=== PATIENT | male | born 1970 | race Caucasian/White ===

== ENCOUNTER → 2017-08-27 | Outpatient (CLI) | payer BC ==
--- NOTE | 2017-08-27 20:54 | CONS ---
CONSULTATION DATE OF SERVICE: 08/27/2017 This patient is a 47-year-old gentleman who has been evaluated in the sleep center for possible obstructive sleep apnea-hypopnea syndrome. HISTORY OF PRESENT ILLNESS/SLEEP-WAKE EVALUATION: Patient's usual sleep schedule on working days is from 9 p.m. to 5 a.m. and on weekends from around 9 p.m. until 8 a.m. No problem with falling asleep. He has a TV set in the bedroom. He sleeps with his and has loud snoring. The patient wakes up from sleep once with nocturia, has positive history of kicking at night and possible out-of- dream movements. The patient wakes up tired, falling asleep during the day. [place] Sleepiness Scale is significantly increased to 15. MEDICATIONS: 1. Testosterone. 2. Vitamin D. 3. Mobic. 4. Lexapro. 5. Lisinopril. 6. Prilosec. 7. . 8. Simvastatin. 9. Flonase. PAST MEDICAL HISTORY: 1. Hypertension. 2. Acid reflux. 3. Hyperlipidemia. 4. Allergies. 5. Hay fever. 6. Depression. 7. Low level of testosterone. PAST SURGICAL HISTORY: 1. Hernia repair. 2. Hand surgery. SOCIAL HISTORY: Negative for smoking. Alcohol consumption occasional. FAMILY HISTORY: Hypertension, heart problems, hyperlipidemia, epilepsy, cancer. REVIEW OF SYSTEMS: Significant excessive daytime sleepiness. Awakenings from sleep. PHYSICAL EXAMINATION: GENERAL A pleasant gentleman without distress. VITAL SIGNS: BP 126/80, HR 98, RR 16, height 5 feet 8 inches, weight 254, BMI 38.4, temperature 98.1, oxygen saturation at room air 96%. HEENT: PERRLA, EOMI. Evaluation of oropharynx showed tongue protrudes midline; moderately low position of soft palate. Small oropharyngeal airspace. Significant restriction of nasal breathing bilaterally. NECK: Wide neck; 18 inches in circumference. LUNGS: Clear to percussion and to auscultation. Good air exchange. No wheezing or rhonchi. HEART: S1, S2 regular. No murmurs, gallops or rubs. ABDOMEN: Obese. EXTREMITIES : No clubbing or cyanosis. SPECIAL FORCES SENIOR SERGEANT: Awake, alert, and oriented X3. Cranial nerves 2 to 7 intact. There is no fasciculation or atrophy. noted. No focal deficits observed. IMPRESSION: 1. Snoring, awakenings from sleep with nocturia, significant restriction of nasal breathing, small oropharyngeal airspace, significant sleepiness, [place] Sleepiness Scale 15, wide neck; obstructive sleep apnea-hypopnea syndrome. 2. Obesity. BMI 38.4. 3. Hypertension. 4. Acid reflux. 5. Hyperlipidemia. 6. Allergies. 7. History of hay fever. 8. Nasal breathing restriction. 9. Depression. 10.Low level of testosterone. 11.Low level of vitamin D. 12.Status post hernia repair. 13.Status post hand surgery. 14.History of kicking at night, periodic limb movements. 15.Some episodes of [id number]-pw-[id number] movements, possible REM sleep behavioral disorder. PLAN: 1. Polysomnography for evaluation of patient's breathing during sleep. 2. CPAP/BiPAP titration if sleep study confirms obstructive sleep apnea-hypopnea syndrome. 3. Preferable position during sleep on the side. 4. No driving if patient feels any sleepiness. Patient is aware of civil and criminal liability for unsafe driving. 5. I will see patient for follow up visit to explain results of testing and following plan. Thank you very much for referring this patient for consultation. Sincerely, Wesley Bryant MD, PhD, FAASM Diplomat of [place] [employer] [place] [employer] Operator of [facility] [place] MATTHIAS / NEIL: [id number] /
== END | disposition home or self-care (01) ==
LOC: SLEEP 16:11
PROVIDERS: ATTEND Internal Medicine
DX: G47.33 Obstructive sleep apnea (adult) (pediatric) (principal); E66.9 Obesity, unspecified; I10 Essential (primary) hypertension; K21.9 Gastro-esophageal reflux disease without esophagitis; E78.2 Mixed hyperlipidemia; T78.40XA Allergy, unspecified, initial encounter; R09.81 Nasal congestion; F32.9 Major depressive disorder, single episode, unspecified; E34.9 Endocrine disorder, unspecified; E55.9 Vitamin D deficiency, unspecified; Z98.890 Other specified postprocedural states; Z87.09 Personal history of other diseases of the respiratory system; Z68.38 Body mass index [BMI] 38.0-38.9, adult; Z79.1 Long term (current) use of non-steroidal anti-inflammatories (NSAID); Z79.891 Long term (current) use of opiate analgesic
CPT/HCPCS: 99211

== ENCOUNTER → 2018-01-14 | Outpatient (CLI) | payer BC ==
--- NOTE | 2018-01-14 16:54 | PN ---
PROGRESS NOTE DATE OF SERVICE: 01/14/2018 This patient is a 47-year-old gentleman who has been followed in the sleep center for treatment of obstructive sleep apnea-hypopnea syndrome. Recently the patient had a polysomnogram and CPAP titration and I discussed results of the sleep studies with the patient in detail. Polysomnogram showed severe sleep apnea with extremely severe oxygen desaturation to 38%. The patient was started on treatment with CPAP. He is able to use equipment every night without significant problems, except his nasal mask was changed from a narrow size to the wide-sized mask, and he does experience discomfort with this mask with pressure on the face. Otherwise he sleeps better. He feels better during the day. He has more energy. He does not snore. I checked his CPAP unit. Pressure is in the range of 5 to 18 automatic regimen. Most of the time pressure is 11.4 cm of water. Usage is 28/30 nights for more than 4 hours. Average usage 7.1 hours. Apnea-hypopnea index is only 2.6, which is totally perfect. Leak is borderline 31 L/minute, and sometimes patient experiences some leak from the nasal mask on his face. MEDICATIONS: 1. Testosterone. 2. Vitamin D. 3. Mobic. 4. Lexapro. 5. Lisinopril. 6. Prilosec. 7. Simvastatin. 8. Flonase. PHYSICAL EXAMINATION: GENERAL A pleasant gentleman without distress. VITAL SIGNS: BP 117/78, HR 70, RR 16, weight 261, temperature 99.1, oxygen saturation at room air 97%. HEENT: PERRLA, EOMI. Evaluation of oropharynx showed tongue protrudes midline; moderately low position of soft palate. Wide pillars. NECK: Supple. No JVD. Thyroid is not palpable. LUNGS: Clear to percussion and to auscultation. Good air exchange. No wheezing or rhonchi. HEART: S1, S2 regular. No murmurs, gallops or rubs. ABDOMEN: Obese. EXTREMITIES : No clubbing or cyanosis. PST SPECIALIST: Awake, alert, and oriented X3. Cranial nerves 2 to 7 intact. There is no fasciculation or atrophy. noted. No focal deficits observed. IMPRESSION: 1. Severe obstructive sleep apnea-hypopnea syndrome. Apnea-hypopnea index 7.5 with extremely severe oxygen desaturation to 38% in REM sleep. The has patient demonstrated great compliance with treatment. Benefitting from treatment. 2. Obesity. 3. Hypertension. 4. Acid reflux. 5. Allergy. 6. History of depression. 7. History of low testosterone. 8. History of low vitamin D. PLAN: 1. Continue treatment with CPAP every night for the whole night. 2. Losing weight. 3. I believe patient will benefit from a trial with usage of nasal pillow mask. 4. No driving if feeling any sleepiness. 5. Sleep hygiene with regular time in bed for at least 7-1/2 to 8 hours. 6. We will continue his prescription for all necessary CPAP supplies. 7. Follow-up visit in about 10 months, which will be one year since sleep study, or earlier if patient has any problems. Thank you very much for allowing me to participate in the management of your patient. Sincerely, Wesley Bryant MD, PhD, FAASM Diplomat of [place] [employer] [employer] In Service Education Teacher of [facility] [place] MMETHELL / CITLALIN: [id number] /
== END | disposition home or self-care (01) ==
LOC: SLEEP 15:05
PROVIDERS: ATTEND Internal Medicine
DX: G47.33 Obstructive sleep apnea (adult) (pediatric) (principal); E66.9 Obesity, unspecified; I10 Essential (primary) hypertension; K21.9 Gastro-esophageal reflux disease without esophagitis; F32.9 Major depressive disorder, single episode, unspecified; T78.40XA Allergy, unspecified, initial encounter; Z79.1 Long term (current) use of non-steroidal anti-inflammatories (NSAID); Z79.899 Other long term (current) drug therapy; Z99.89 Dependence on other enabling machines and devices; Z86.39 Personal history of other endocrine, nutritional and metabolic disease

== ENCOUNTER → 2019-09-01 | Outpatient (CLI) | payer BC, OTHER ==
--- NOTE | 2019-09-01 14:57 | PN ---
PROGRESS NOTE DATE OF SERVICE: 09/01/2019. A 49-year-old gentleman who has been followed in the Sleep Center for treatment of obstructive sleep apnea-hypopnea syndrome. The patient continued to use his CPAP equipment every night for the whole night without significant problems. No snoring with the machine. [place] Sleepiness Scale today is 10. I checked CPAP unit, range of the pressure is 6-18 with average pressure 9.8 cm of water. Usage is 29/30 nights for more than 4 hours with average usage 9 hours per night. Leak is 17 L/minute which is borderline. Apnea-hypopnea index absolutely normal 2.1. Sometimes patient has problems with the condensation of water inside of the tube, if he increases level of humidity higher. MEDICATIONS: Simvastatin, omeprazole, , vitamin D 2, meloxicam, lisinopril, and also testosterone. PHYSICAL EXAM: Patient in no distress, BP 114/75, HR 91, RR 16, height 5 foot 8-3/4 inches, weight 233 pounds which is around 30 pounds less than during previous visit. Temperature 98.6, oxygen saturation on room air 98%. OROPHARYNX: Low position of soft palate, Mallampati 3: ABDOMEN: Scar in the middle of the belly after recent resection of the colon. IMPRESSION: 1. Obstructive sleep apnea-hypopnea syndrome. Patient demonstrated great compliance with treatment benefitting from treatment. 2. Obesity, patient lost around 30 pounds since previous visit. 3. Status post recent colon resection for perforated colon secondary to diverticulitis. 4. Hyperlipidemia. 5. Acid reflux. 6. Hypertension. 7. History of allergy. 8. History of depression. 9. History of low testosterone. 10.History of low vitamin D. PLAN: 1. Patient will continue to use CPAP equipment every night for the whole night. 2. We will adjust temperature in the heated tube and humidity. 3. I will maintain all necessary prescriptions for CPAP supplies including mask, heated tube, filters. 4. Continue losing weight. 5. No driving if feeling sleepiness. Thank you very much for allowing me to participate in the management of your patient. Sincerely, Wesley Bryant MD, PhD, FAASM Diplomat of [place] [employer] [employer] Box Annealer of [facility] [place] MMODL / IJN: [id number] /
== END | disposition home or self-care (01) ==
LOC: SLEEP 13:18
PROVIDERS: ATTEND Internal Medicine
DX: G47.33 Obstructive sleep apnea (adult) (pediatric) (principal); E66.9 Obesity, unspecified; E78.5 Hyperlipidemia, unspecified; K21.9 Gastro-esophageal reflux disease without esophagitis; I10 Essential (primary) hypertension; Z86.59 Personal history of other mental and behavioral disorders; Z87.892 Personal history of anaphylaxis; Z86.39 Personal history of other endocrine, nutritional and metabolic disease; Z98.890 Other specified postprocedural states; Z79.899 Other long term (current) drug therapy

== ENCOUNTER → 2019-12-23 | Outpatient (CLI) | payer OTHER | END | disposition home or self-care (01) | LOC: LABWHC1 08:19 | PROVIDERS: ATTEND Surgery | DX: Z11.59 Encounter for screening for other viral diseases (principal) ==

== ENCOUNTER 2019-12-27 11:15 | Day surgery (SDC) | payer OTHER ==
[2019-12-23 13:02] VITALS: BMI 35.9
[~2019-12-27 11:15] MED LIST: LACTATED RINGERS 1,000 ML IV SCH; LIDOCAINE 1% (10MG/ML) FOR IV START INTRADERMA PRN
[2019-12-27 11:18] VITALS: TEMP 97.6
[2019-12-27] MEDS ORDERED: PROPOFOL 10 MG/ML 20 ML VIAL IV ONE (11:58)
--- NOTE | 2019-12-27 12:21 | P.PCN ---
Date of Procedure: 12/27/19 Preoperative Diagnosis: Colon cancer screening, Diverticulosis, colostomy in situ Postoperative Diagnosis: Colon cancer screening, Diverticulosis, colostomy in place Procedure(s) Performed: Colonoscopy through rectum and colostomy Anesthesia: MAC Surgeon: Annia Vail Pathology: none sent Condition: stable Disposition: PACU Indications for Procedure: The patient has a colostomy in place for diverticulitis with perforation. He's presenting for colon cancer screening prior to reversal of his colostomy Description of Procedure: The patient's taken to the endoscopy suite where colonoscope is passed per rectum to about 30 cm. There are a few diverticuli noted. No evidence of polyp, mass lesion, other mucosal abnormality. A colonoscope is then passed through his colostomy to the cecum. He had a good prep. There is a small amount of liquid material which is irrigated and aspirated. There is no evidence of polyp, mass lesion, ulcer, stricture, other mucosal abnormality. He tolerated the procedure without difficulty and is taken to recovery room in satisfactory condition. We'll proceed with reversal of colostomy tomorrow. Repeat colonoscopy 10 years Plan - Discharge Summary Discharge Rx Participant: No New Discharge Prescriptions: No Action Testosterone Cypionate [Depo-Testosterone] 100 mg IM Q14D Omeprazole 40 mg PO DAILY Loratadine [Claritin] 10 mg PO DAILY PRN PRN Reason: ALLERGY/SINUS SX Ergocalciferol [Vitamin D2] 50,000 unit PO GILES Simvastatin [Zocor] 40 mg PO HS Meloxicam [Mobic] 15 mg PO DAILY Lisinopril [Zestril] 20 mg PO DAILY Ezetimibe [Zetia] 10 mg PO DAILY Ibuprofen [Motrin Ib] 600 mg PO Q6H PRN PRN Reason: Pain Multivitamin [Multivitamins Adult Gummies] 2 each PO DAILY Discharge Medication List Ergocalciferol [Vitamin D2] 50,000 unit PO GILES 08/06/19 [History] Ezetimibe [Zetia] 10 mg PO DAILY 08/06/19 [History] Ibuprofen [Motrin Ib] 600 mg PO Q6H PRN 08/06/19 [History] Lisinopril [Zestril] 20 mg PO DAILY 08/06/19 [History] Loratadine [Claritin] 10 mg PO DAILY PRN 08/06/19 [History] Meloxicam [Mobic] 15 mg PO DAILY 08/06/19 [History] Omeprazole 40 mg PO DAILY 08/06/19 [History] Simvastatin [Zocor] 40 mg PO HS 08/06/19 [History] Testosterone Cypionate [Depo-Testosterone] 100 mg IM Q14D 08/06/19 [History] Multivitamin [Multivitamins Adult Gummies] 2 each PO DAILY 12/23/19 [History] Activity/Diet/Wound Care/Special Instructions: Continue clear liquid diet today Discharge Disposition: HOME SELF-CARE
[2019-12-27 13:10] VITALS: BP 138/68; PULSE 68; RESP 16
== END 2019-12-27 13:20 | disposition home or self-care (01) ==
LOC: ORWHC2ENDO 11:15
PROVIDERS: ATTEND Surgery
DX: Z12.11 Encounter for screening for malignant neoplasm of colon (principal); K57.30 Diverticulosis of large intestine without perforation or abscess without bleeding; K43.5 Parastomal hernia without obstruction or gangrene; I10 Essential (primary) hypertension; E78.00 Pure hypercholesterolemia, unspecified; Z93.3 Colostomy status; Z79.890 Hormone replacement therapy; Z79.1 Long term (current) use of non-steroidal anti-inflammatories (NSAID); Z79.899 Other long term (current) drug therapy; Z90.49 Acquired absence of other specified parts of digestive tract; Z80.8 Family history of malignant neoplasm of other organs or systems
CPT/HCPCS: 44388; J2704

== ENCOUNTER 2019-12-28 08:34 | Inpatient (IN) | payer OTHER ==
[2019-12-23 12:36] VITALS: BMI 35.9
[2019-12-27 13:49] LABS: HCT 42.8 % (39.0-53.0); HGB 14.4 gm/dL (13.0-17.5); MCH 28.3 pg (25.0-35.0); MCHC 33.7 g/dL (31.0-37.0); MCV 84.2 fL (80.0-100.0); Platelet Count 185 k/uL (150-450); RBC 5.08 m/uL (4.30-5.90); RDW 13.5 % (11.5-15.5); WBC 6.4 k/uL (3.8-10.6)
[~2019-12-28 08:34] MED LIST changes: +DEXAMETHASONE SOD PHOSPHATE 10 MG/ML 1 ML VIAL IV ONE; -LACTATED RINGERS 1,000 ML IV SCH; -LIDOCAINE 1% (10MG/ML) FOR IV START INTRADERMA PRN; +ONDANSETRON 4 MG/2 ML VIAL IVP ONE; +metroNIDAZOLE-NS PMX 500 MG in SALINE 1 100ML.BAG IVPB ONE
[2019-12-28] MEDS: LACTATED RINGERS 1,000 ML IV SCH ×2 (09:18→19:30)
[2019-12-28] MEDS ORDERED: HEPARIN SODIUM,PORCINE 5,000 UNIT/ML 1 ML VIAL SQ ONE (09:31)
[2019-12-28] MEDS ORDERED: LABETALOL 5 MG/ML VIAL MDV ONE (10:06)
[2019-12-28] MEDS ORDERED: fentaNYL (PF) 50 MCG/ML 2 ML AMP ONE (10:06)
[2019-12-28] MEDS ORDERED: METOPROLOL TARTRATE 5 MG/5 ML VIAL IVP ONE (10:06)
[2019-12-28] MEDS ORDERED: HYDROmorphone (PF) 1 MG/ML ONE (10:06)
[2019-12-28] MEDS ORDERED: NEOSTIGMINE 1 MG/ML 10 ML VIAL ONE (10:06)
[2019-12-28] MEDS ORDERED: LIDOCAINE 1% INJ 10MG/ML (20 ML MDV) ONE (10:06)
[2019-12-28] MEDS ORDERED: MIDAZOLAM 2 MG/2 ML VIAL ONE (10:06)
[2019-12-28] MEDS ORDERED: ROCURONIUM BROMIDE 10 MG/ML 5 ML VIAL IV ONE (10:06)
[2019-12-28] MEDS ORDERED: PROPOFOL 10 MG/ML 20 ML VIAL IV ONE (10:06)
[2019-12-28] MEDS ORDERED: KETOROLAC 30 MG/ML 1 ML VIAL ONE (10:06)
[2019-12-28] MEDS ORDERED: GLYCOPYRROLATE 0.2 MG/ML 2 ML VIAL ONE (10:06)
[2019-12-28] MEDS ORDERED: hydrALAZINE HCL 20 MG/ML 1 ML VIAL ONE (10:06)
[2019-12-28] MEDS ORDERED: SUCCINYLCHOLINE CHLORIDE VIAL 200 MG/10 ML VIAL IV ONE (10:06)
[2019-12-28] MEDS ORDERED: BUPIVACAIN-EPI 0.25%-1:200,000 30 ML VIAL SQ ONE ×2 (10:56)
[2019-12-28] MEDS ORDERED: LACTATED RINGERS 1,000 ML IV ONE (11:37)
[2019-12-28] MEDS ORDERED: HYDROcodone/APAP 5-325MG 1 EACH TAB PO PRN (13:55)
[2019-12-28] MEDS ORDERED: NALOXONE 0.4 MG/ML 1 ML VIAL IV PRN (13:55)
--- NOTE | 2019-12-28 14:04 | P.OP ---
Date of Procedure: 12/28/19 Preoperative Diagnosis: Parastomal hernia, colostomy in place, diverticulosis Postoperative Diagnosis: Same Procedure(s) Performed: Robotic reversal of colostomy with peristomal herniorrhaphy Anesthesia: DAWOOD Surgeon: Annia Vail IV fluids (ml): 150 Condition: stable Disposition: PACU Indications for Procedure: The patient had had a Lyons's procedure due to perforated diverticulitis. He's presenting for reversal. He also was noted to have a parastomal hernia. Description of Procedure: The patient's taken the operative suite where he is prepped and draped in the usual sterile manner under general endotracheal anesthetic. An incision is made around the skin of the ostomy. The bowel was then dissected free from the subcutaneous tissues. Small bleeding points were controlled with electrocautery. The bowels freed up from the fascial edges and muscle. It's freed up from the posterior fascia and peritoneum. Some of the mesentery is taken down and then a DANNY stapler was placed and fired to resect the distal 2-3 cm. The bowel was then wrapped in the abdominal cavity. The posterior fascia and peritoneum are dissected free from underneath the rectus muscle. Once adequate space was developed, a surgimend was used to reinforce the closure of the peritoneum and fascia. It was sutured in place with 0 Vicryl. The anterior fascia was then closed with 0 Vicryl. Gloves were then changed. An incision was made in the upper midline. The fascia was grasped and incised. The peritoneum was grasped and incised. A finger sweep was carried out. A balloon trocar was placed. Sites are chosen for accessory trochars needs are placed a small skin incisions. The robot was then docked. There is some filmy adhesions of the small bowel to the midline. These are taken down with scissors. The patient is then rotated. The distal end of the colon is identified and freed of some filmy adhesions. There is a long intra-abdominal section. The descending colon was then mobilized along the white line of Toldt. It came down nicely so with lay [id number] with the distal segment. Seromuscular sutures of 3-0 Vicryl were then used to approximate the descending colon and the very distal sigmoid. Enterotomy was made in both limbs of bowel. A DANNY stapler was placed and fired. The enteric defect was closed in a 2 layered manner using 3-0 Vicryl. The paracolic gutter and pelvis were then irrigated and aspirated. No undue bleeding was seen. The small bowel lay in gentle loops. The pneumoperitoneum was then released. The trochars were removed. The fascia at the 12 mm trocar sites was closed with 0 Vicryl. Skin incisions were closed with amy. The subcutaneous tissue at the colostomy site was approximated with 3-0 Vicryl. The skin there was closed with amy. Sterile dressings were applied. He tolerated the procedure without difficulty was taken recovery room in satisfactory condition. According to or personnel, all counts were correct.
[2019-12-28] MEDS: HYDROmorphone 0.5 MG/0.5 ML SYRINGE IVP PRN ×4 (14:22→19:57)
[2019-12-28] MEDS: HEPARIN SODIUM,PORCINE 5,000 UNIT/ML 1 ML VIAL SQ SCH ×2 (17:17→22:43)
[2019-12-28] MEDS: KETOROLAC 30 MG/ML 1 ML VIAL IVP SCH ×2 (17:17→19:30)
[2019-12-28] MEDS: METOCLOPRAMIDE 5 MG/ML 2 ML VIAL IVP SCH ×2 (17:17→19:57)
[2019-12-28] MEDS: D5-0.45% NACL WITH KCL 20MEQ/L 1,000 ML IV SCH (17:26)
[2019-12-29] MEDS ORDERED: HYDROmorphone 0.5 MG/0.5 ML SYRINGE ONE (02:00)
[2019-12-29] MEDS ORDERED: KETOROLAC 30 MG/ML 1 ML VIAL ONE (02:00)
[2019-12-29] MEDS ORDERED: METOCLOPRAMIDE 5 MG/ML 2 ML VIAL ONE (02:00)
[2019-12-29] MEDS: METOCLOPRAMIDE 5 MG/ML 2 ML VIAL IVP SCH ×4 (04:38→20:06)
[2019-12-29] MEDS: D5-0.45% NACL WITH KCL 20MEQ/L 1,000 ML IV SCH ×3 (04:38→20:06)
[2019-12-29] MEDS: KETOROLAC 30 MG/ML 1 ML VIAL IVP SCH ×4 (04:38→20:06)
[2019-12-29] MEDS: HEPARIN SODIUM,PORCINE 5,000 UNIT/ML 1 ML VIAL SQ SCH ×3 (06:57→23:18)
[2019-12-29] MEDS: HYDROcodone/APAP 5-325MG 1 EACH TAB PO PRN ×3 (06:59→21:43)
[2019-12-29] MEDS: PANTOPRAZOLE 40 MG/10 ML VIAL IV SCH (06:59)
[2019-12-29 07:47] LABS: Basophils % (A) 0 %; Eosinophils # (A) 0.1 k/uL (0-0.7); Eosinophils % (A) 1 %; HCT 41.3 % (39.0-53.0); HGB 13.9 gm/dL (13.0-17.5); Lymphocytes # (A) 1.1 k/uL (1.0-4.8); Lymphocytes % (A) 8 %; MCH 28.3 pg (25.0-35.0); MCHC 33.6 g/dL (31.0-37.0); MCV 84.1 fL (80.0-100.0); Mean Platelet Volume 7.8; Monocytes % (A) 7 %; Neutrophils # (A) 10.8 k/uL (1.3-7.7); Neutrophils % (A) 82 %; Platelet Count 196 k/uL (150-450); RBC 4.91 m/uL (4.30-5.90); RDW 13.3 % (11.5-15.5); WBC 13.1 k/uL (3.8-10.6)
[2019-12-29 08:03] LABS: African American GFR (CKD) >90 (>60 ml/min/1.73 sqM); Anion Gap 8 mmol/L; Blood Urea Nitrogen 14 mg/dL (9-20); Calcium 8.1 mg/dL (8.4-10.2); Carbon Dioxide 25 mmol/L (22-30); Chloride 104 mmol/L (98-107); Glucose 105 mg/dL (74-99); Non-African American GFR(CKD) >90 (>60 ml/min/1.73 sqM); Sodium 137 mmol/L (137-145)
--- NOTE | 2019-12-29 09:11 | P.PN ---
Subjective Progress Note Date: 12/29/19 Principal diagnosis: Status post reversal of colostomy The patient is postop day 1 robotic reversal of colostomy with repair of stomal hernia. He is doing well. Has some mild incisional pain in the left lower quadrant. No nausea or vomiting. He is hungry. Tolerated a clear liquid breakfast. Would like more to eat. Objective - Vital Signs Vital signs: Vital Signs Temp 98.4 F 12/29/19 07:00 Pulse 79 12/29/19 07:00 Resp 16 12/29/19 07:00 BP 106/70 12/29/19 07:00 Pulse Ox 96 12/29/19 07:00 Intake & Output 12/28/19 12/29/19 12/29/19 18:59 06:59 18:59 Intake Total 1650 1400 Output Total 275 1000 Balance 1375 400 Weight 109.4 kg Intake: IV 1650 Intake, IV Titration 1200 Amount D5-0.45% NaCl with KCl 1200 20Meq/l 1,000 ml @ 100 mls/hr IV .Q10H KELLI Rx#: [id number] Oral 200 Output: Urine 250 1000 Estimated Blood Loss 25 Other: Voiding Method Toilet Toilet Toilet Urinal # Voids 300 - Constitutional General appearance: Present: cooperative, no acute distress - Respiratory Respiratory: bilateral: CTA - Cardiovascular Rhythm: regular - Gastrointestinal General gastrointestinal: Present: normal bowel sounds, soft Localized gastrointestinal: surgical scar: diffuse (Dressings are intact, clean, dry) - Labs CBC & Chem 7: 12/29/19 06:39 12/29/19 06:39 Labs: Abnormal Lab Results - Last 24 Hours (Table) 12/29/19 12/29/19 Range/Units 06:39 06:39 WBC 13.1 H (3.8-10.6) k/uL Neutrophils # 10.8 H (1.3-7.7) k/uL Glucose 105 H (74-99) mg/dL Calcium 8.1 L (8.4-10.2) mg/dL Assessment and Plan (1) Hernia of abdominal wall Current Visit: Yes Status: Acute Code(s): K43.9 - VENTRAL HERNIA WITHOUT OBSTRUCTION OR GANGRENE SNOMED Code(s): 590682701 (2) S/P colostomy takedown Current Visit: Yes Status: Acute Code(s): Z98.890 - OTHER SPECIFIED POSTPR OCEDURAL STATES SNOMED Code(s): 62170141062617754 Plan: Stomal hernia clinically the patient is doing well. Pain is well controlled with pain pills. Diet and activity will be advanced. Encourage incentive spirometry. Progressing well.
[2019-12-29] MEDS: HYDROmorphone 0.5 MG/0.5 ML SYRINGE IVP PRN (14:52)
[2019-12-29] MEDS: LACTATED RINGERS 1,000 ML IV SCH (19:51)
[2019-12-30] MEDS: KETOROLAC 30 MG/ML 1 ML VIAL IVP SCH ×2 (03:22→06:36)
[2019-12-30] MEDS: METOCLOPRAMIDE 5 MG/ML 2 ML VIAL IVP SCH ×2 (03:22→06:37)
[2019-12-30] MEDS: D5-0.45% NACL WITH KCL 20MEQ/L 1,000 ML IV SCH (05:24)
[2019-12-30] MEDS: HYDROcodone/APAP 5-325MG 1 EACH TAB PO PRN ×2 (06:35→13:39)
[2019-12-30] MEDS: PANTOPRAZOLE 40 MG/10 ML VIAL IV SCH (06:36)
[2019-12-30] MEDS: HEPARIN SODIUM,PORCINE 5,000 UNIT/ML 1 ML VIAL SQ SCH (06:37)
[2019-12-30 07:42] VITALS: BP 123/72; PULSE 77; RESP 17; TEMP 98.8
--- NOTE | 2019-12-30 13:25 | P.DS ---
Providers Date of admission: 12/28/19 08:34 Expected date of discharge: 12/30/19 Attending physician: Annia Vail Primary care physician: Sarkis Issa - Discharge Diagnosis(es) (1) Hernia of abdominal wall Current Visit: Yes Status: Acute (2) S/P colostomy takedown Current Visit: Yes Status: Acute Hospital Course: The patient is a 49-year-old man who presents for colostomy takedown and repair of a parastomal hernia. He was taken to the OR where he underwent a robotic reversal of his colostomy and repair of the stomal hernia. He was able to eat quickly increased on his diet and activity. He was not having much abdominal pain. Postop day 2 he was tolerating a diet, having flatus. His pain was well controlled. He is felt to be stable for discharge. Procedures: Reversal colostomy Patient Condition at Discharge: Good Plan - Discharge Summary Discharge Rx Participant: Yes New Discharge Prescriptions: New HYDROcodone/APAP 5-325MG [[place] 5-325] 1 - 2 tab PO Q4H PRN #20 tab PRN Reason: Pain No Action Testosterone Cypionate [Depo-Testosterone] 100 mg IM Q14D Omeprazole 40 mg PO DAILY Loratadine [Claritin] 10 mg PO DAILY PRN PRN Reason: ALLERGY/SINUS SX Ergocalciferol [Vitamin D2] 50,000 unit PO GILES Simvastatin [Zocor] 40 mg PO HS Meloxicam [Mobic] 15 mg PO DAILY Lisinopril [Zestril] 20 mg PO DAILY Ezetimibe [Zetia] 10 mg PO DAILY Ibuprofen [Motrin Ib] 600 mg PO Q6H PRN PRN Reason: Pain Multivitamin [Multivitamins Adult Gummies] 2 each PO DAILY Discharge Medication List Ergocalciferol [Vitamin D2] 50,000 unit PO GILES 08/06/19 [History] Ezetimibe [Zetia] 10 mg PO DAILY 08/06/19 [History] Ibuprofen [Motrin Ib] 600 mg PO Q6H PRN 08/06/19 [History] Lisinopril [Zestril] 20 mg PO DAILY 08/06/19 [History] Loratadine [Claritin] 10 mg PO DAILY PRN 08/06/19 [History] Meloxicam [Mobic] 15 mg PO DAILY 08/06/19 [History] Omeprazole 40 mg PO DAILY 08/06/19 [History] Simvastatin [Zocor] 40 mg PO HS 08/06/19 [History] Testosterone Cypionate [Depo-Testosterone] 100 mg IM Q14D 08/06/19 [History] Multivitamin [Multivitamins Adult Gummies] 2 each PO DAILY 12/23/19 [History] HYDROcodone/APAP 5-325MG [[place] 5-325] 1 - 2 tab PO Q4H PRN #20 tab 12/30/19 [Rx] Follow up Appointment(s)/Referral(s): Annia Vail DO [Doctor of Osteopathic Medicine] - (1-2 weeks for staple removal. Office closed at time of discharge. Please call to make appointment) Activity/Diet/Wound Care/Special Instructions: You may shower. No tub bath or swimming for 1 week. Light dressing to the amy. Follow a lower fiber diet for 1 week. Expect some bruising. Call or go to the ER if you develop fever, chills, nausea or vomiting, concerns of wound infection. No driving while taking pain medication. You may take Motrin or Aleve instead of the pain pills. Discharge Disposition: HOME SELF-CARE
== END 2019-12-30 14:44 | disposition home or self-care (01) | DRG 331 ==
LOC: 2ORMAIN 08:34 → 4SSUR 14:00
PROVIDERS: ADMIT Surgery; ATTEND Surgery
PROC: 0WQF4ZZ Repair Abdominal Wall, Percutaneous Endoscopic Approach (ICD-10-PCS; 2019-12-28)
PROC: 8E0W4CZ Robotic Assisted Procedure of Trunk Region, Percutaneous Endoscopic Approach (ICD-10-PCS; 2019-12-28)
PROC: 0DBM0ZZ Excision of Descending Colon, Open Approach (ICD-10-PCS; principal; 2019-12-28 10:00)
DX: Z43.3 Encounter for attention to colostomy (principal); K43.5 Parastomal hernia without obstruction or gangrene; K57.30 Diverticulosis of large intestine without perforation or abscess without bleeding; Z79.899 Other long term (current) drug therapy; Z80.8 Family history of malignant neoplasm of other organs or systems
CPT/HCPCS: 80048; 80051; 85025; 85027; 86850; 86900; 86901; 88304

== ENCOUNTER → 2020-04-02 | Outpatient (CLI) | payer OTHER ==
--- NOTE | 2020-04-02 12:17 | XR ---
EXAMINATION TYPE: XR abdomen 1V DATE OF EXAM: 04/02/2020 12:06 PM CLINICAL HISTORY: Left-sided kidney stones. TECHNIQUE: Two supine KUB images of the abdomen are obtained. COMPARISON: Outside CT August 06, 2019. FINDINGS: Roughly 3 mm lower pole left renal calculus coronal image [address] is not clearly identifie d on plain films. Scattered bilateral pelvic phleboliths are redemonstrated. Overall nonobstructive bowel gas pattern. Visualized osseous structures are intact. IMPRESSION: As above.
== END | disposition home or self-care (01) ==
LOC: RADXRMAIN 11:52
PROVIDERS: ATTEND Urology
DX: N20.0 Calculus of kidney (principal)
CPT/HCPCS: 74018

== ENCOUNTER → 2020-04-03 | Outpatient (CLI) | payer OTHER ==
[2020-04-03 10:36] LABS: African American GFR (CKD) >90 (>60 ml/min/1.73 sqM); Anion Gap 6 mmol/L; Blood Urea Nitrogen 17 mg/dL (9-20); Calcium 9.3 mg/dL (8.4-10.2); Carbon Dioxide 28 mmol/L (22-30); Chloride 106 mmol/L (98-107); Glucose 80 mg/dL (74-99); Non-African American GFR(CKD) >90 (>60 ml/min/1.73 sqM); Potassium 4.5 mmol/L (3.5-5.1); Sodium 140 mmol/L (137-145)
[2020-04-03 10:59] LABS: Basophils # (A) 0.1 k/uL (0-0.2); Basophils % (A) 1 %; Eosinophils # (A) 0.4 k/uL (0-0.7); Eosinophils % (A) 5 %; HCT 49.6 % (39.0-53.0); HGB 15.8 gm/dL (13.0-17.5); Lymphocytes # (A) 1.9 k/uL (1.0-4.8); Lymphocytes % (A) 24 %; MCH 26.1 pg (25.0-35.0); MCHC 31.9 g/dL (31.0-37.0); MCV 81.8 fL (80.0-100.0); Mean Platelet Volume 8.1; Monocytes # (A) 0.7 k/uL (0-1.0); Monocytes % (A) 9 %; Neutrophils # (A) 4.9 k/uL (1.3-7.7); Neutrophils % (A) 60 %; Platelet Count 218 k/uL (150-450); RBC 6.06 m/uL (4.30-5.90); RDW 14.4 % (11.5-15.5); WBC 8.1 k/uL (3.8-10.6)
== END | disposition home or self-care (01) ==
LOC: LABPAT 09:06
PROVIDERS: ATTEND Urology
DX: Z01.818 Encounter for other preprocedural examination (principal); N20.1 Calculus of ureter
CPT/HCPCS: 36415; 80048; 85025

== ENCOUNTER → 2020-04-12 | Day surgery (SDC) | payer OTHER ==
--- NOTE | 2020-04-05 20:11 | P.GSHP ---
History of Present Illness H&P Date: 04/05/20 Chief Complaint: Left renal colic The patient is a 49-year-old male with no prior history of urolithiasis. He recently experienced left renal colic and was found to have left hydronephrosis due to a 3.1 mm calculus at the left ureterovesical junction. A computed tomography scan 2 weeks later was unchanged. He was offered the options of medical expulsion therapy versus ureteroscopic removal of the calculus. He has elected to undergo the latter if the calculus fails to pass. He hopes to avoid stent placement. - Constitutional Constitutional: Denies chills, Denies fever - Gastrointestinal Gastrointestinal: Reports nausea - Genitourinary (Female) Genitourinary: Reports flank pain, Reports hematuria, Reports kidney stones Past Medical History Past Medical History: GERD/Reflux, Hyperlipidemia, Hypertension Additional Past Medical History / Comment(s): Uses cpap, states Oxygen goes into 80s without it. Perforated diverticulitis w/ colostomy 08/06/19, current hernia at site. History of Any Multi-Drug Resistant Organisms: None Reported Past Surgical History: Hernia Repair, Orthopedic Surgery Additional Past Surgical History / Comment(s): Lt hand I&D. Bowel resection w/ colostomy 08/06/19. Past Anesthesia/Blood Transfusion Reactions: No Reported Reaction Past Psychological History: Anxiety Past Alcohol Use History: Occasional Past Drug Use History: None Reported - Past Family History Father Additional Family Medical History / Comment(s): Brain tumor Mother Family Medical History: Cancer Additional Family Medical History / Comment(s): Breast cancer Medications and Allergies Home Medications Medication Instructions Recorded Confirmed Type Ergocalciferol [Vitamin D2] 50,000 unit PO GILES 08/06/19 12/23/19 History Ezetimibe [Zetia] 10 mg PO DAILY 08/06/19 12/23/19 History Ibuprofen [Motrin Ib] 600 mg PO Q6H PRN 08/06/19 12/23/19 History Loratadine [Claritin] 10 mg PO DAILY PRN 08/06/19 12/23/19 History Meloxicam [Mobic] 15 mg PO DAILY 08/06/19 12/23/19 History Omeprazole 40 mg PO DAILY 08/06/19 12/23/19 History Simvastatin [Zocor] 40 mg PO HS 08/06/19 12/23/19 History Testosterone Cypionate 100 mg IM Q14D 08/06/19 12/23/19 History [Depo-Testosterone] lisinopriL [Zestril] 20 mg PO DAILY 08/06/19 12/23/19 History Multivitamin [Multivitamins Adult 2 each PO DAILY 12/23/19 12/23/19 History Gummies] HYDROcodone/APAP 5-325MG [[place] 1 - 2 tab PO Q4H PRN #20 tab 12/30/19 Rx 5-325] Allergies Allergy/AdvReac Type Severity Reaction Status Date / Time No Known Allergies Allergy Verified 12/27/19 11:18 Surgical - Exam - General well developed, well nourished, no distress - Neck no masses, trachea midline - Respiratory normal respiratory effort, clear to auscultation - Cardiovascular Rhythm: regular Abnormal Heart Sounds: no systolic murmur, no diastolic murmur, no rub, no S3 Gallop, no S4 Gallop, no click, no other - Abdomen Abdomen: soft, non tender, no guarding, no rigid, no rebound - Genitourinary normal penis with no external lesions, testicles non-tender - Psychiatric oriented to time, oriented to person, oriented to place, speech is normal, memory intact Results - Imaging CT scan - abdomen: report reviewed, image reviewed Assessment and Plan (1) Calculus of ureter Status: Acute Code(s): N20.1 - CALCULUS OF URETER SNOMED Code(s): 97488921 (2) Hydronephrosis with renal and ureteral calculous obstruction Status: Acute Code(s): N13.2 - HYDRONEPHROSIS WITH RENAL AND URETERAL CALCULOUS OBSTRUCTION SNOMED Code(s): 516767026 Plan: Cystoscopy, left ureteroscopy with Holmium laser lithotripsy and/or stone basketing. The procedure then reviewed in detail with the patient. He is aware of potential risks, which include anesthesia, bleeding, infection, ureteral injury, and inability to successfully remove the calculus. As stated, he hopes to avoid stent placement.
[2020-04-11 11:20] VITALS: BMI 35.9
[~2020-04-12] MED LIST changes: +HYDROmorphone 0.5 MG/0.5 ML SYRINGE IVP PRN; +IOPAMIDOL-370 50ML BTL MISCELLANE ONE; +KETOROLAC 15 MG/ML 1 ML VIAL ONE; +LACTATED RINGERS 1,000 ML IV SCH; +LIDOCAINE 1% (10MG/ML) FOR IV START INTRADERMA PRN; +LIDOCAINE 1% INJ 10MG/ML (20 ML MDV) ONE; +MIDAZOLAM 2 MG/2 ML VIAL IV ONE; +MIDAZOLAM 2 MG/2 ML VIAL ONE; +ONDANSETRON 4 MG/2 ML VIAL IVP PRN; +PROPOFOL 10 MG/ML 20 ML VIAL IV ONE; +SUCCINYLCHOLINE CHLORIDE VIAL 200 MG/10 ML VIAL IV ONE; +fentaNYL (PF) 50 MCG/ML 2 ML AMP ONE; -metroNIDAZOLE-NS PMX 500 MG in SALINE 1 100ML.BAG IVPB ONE
--- NOTE | 2020-04-12 06:40 | XR ---
EXAMINATION TYPE: XR KUB DATE OF EXAM: 04/12/2020 6:15 AM CLINICAL HISTORY: Left-sided kidney stones. TECHNIQUE: Single supine KUB image of the abdomen is obtained. COMPARISON: Outside abdominal x-ray [address] August 06, 2019.. FINDINGS: Scattered bilateral pelvic phleboliths including 5 mm right pelvic phlebolith. No definitiv e nephrolithiasis. Overall nonobstructive bowel gas pattern. Visualized osseous structures are intact. IMPRESSION: As above.
--- NOTE | 2020-04-12 09:08 | P.OP ---
Date of Procedure: 04/12/20 Preoperative Diagnosis: Left ureteral calculus Postoperative Diagnosis: Same Procedure(s) Performed: Cystoscopy, left retrograde pyelogram, left ureteroscopy with Holmium laser lithotripsy and stone basketing, left ureteral stent insertion Anesthesia: KARLIA Surgeon: Isiah Joseph Estimated Blood Loss (ml): 10 IV fluids (ml): 700 Condition: stable Disposition: PACU Indications for Procedure: The patient is a 49-year-old male with no prior history of urolithiasis. He recently experienced left renal colic and was found to have left hydronephrosis due to a 3.1 mm calculus at the left ureterovesical junction. A computed tomography scan 2 weeks later was unchanged. He was offered the options of medical expulsion therapy versus ureteroscopic removal of the calculus. He has elected to undergo the latter if the calculus fails to pass. He hopes to avoid stent placement. Operative Findings: 3 mm left distal ureteral calculus, removed completely. Description of Procedure: The patient was taken to the operating room and placed in the dorsolithotomy position, with legs supported in Bernabe stirrups. The external genitalia was prepped and draped sterilely. The 30 lens was used to introduce the 21-[place] Cantu cystoscopic sheath through the urethra and into the bladder under direct vision. The prostatic urethra showed evidence of mild lateral lobe enlargement. The bladder was examined in its entirety. Both ureteral orifices were normal anatomic location and configuration, and clear urine effluxed from both. No tumors or foreign bodies were seen. Using a 10-[place] cone-tipped catheter, a left retrograde pyelogram was performed. The ureter was not dilated. The calculus was not seen with certainty, though there was reason to suspect that one might be present. The Cantu semirigid ureteroscope was advanced into the bladder, and the left ureteral orifice was cannulated. The ureteroscope could be advanced only 1-2 cm, at which point the ureter was narrowed. A 0.035 inch Glidewire was passed through the ureteroscope, which was removed. A 15-[place] balloon dilating catheter was passed over the wire, and used to dilate the distal ureter. Ureteroscopy was repeated, and the calculus was identified. The 200 micron Holmium laser probe was passed through the ureteroscope, and lithotripsy was performed. A 1.9- [place] nitinol basket was used to remove all of the calculus fragments, which were sent for chemical analysis. The Glidewire was then passed through the ureteroscope, which was removed. The Glidewire was backloaded into the cystoscope, which was passed into the bladder. A 26 cm, 4.8-[place] double-J ureteral stent was placed over the wire. Proper stent positioning was verified fluoroscopically and endoscopically. The bladder was emptied and the cystoscope removed. The string was left attached to the stent, and this was secured to the penis using a Tegaderm dressing. The patient tolerated the procedure well and was taken to the recovery room in stable condition. WENDY MARIONJordon Report: Procedure Acuity: Elective Stone Size and Location: 3 mm, left distal ureter Ureteral Dilation: Balloon Dilation Ureteral Access Sheath Used: No Stone Sent for Analysis: Yes All Stones/Fragments Were Removed with a Basket: Yes Complications: No Preoperative Antibiotics Given: Yes Stent Placed: Yes If Stent Placed, Was String Left Attached: Yes If Stent Placed, When is it to be Removed: 1 week Discharge Medications: Tamsulosin, Detrol LA
[2020-04-12 09:10] VITALS: TEMP 97.6
[2020-04-12 09:28] VITALS: RESP 16
--- NOTE | 2020-04-12 09:32 | FL ---
EXAMINATION TYPE: FL urography retrograde DATE OF EXAM: 04/12/2020 CLINICAL HISTORY: Left ureter stones. TECHNIQUE: Fluoroscopy. COMPARISON: Same day abdominal x-ray no older studies. FINDINGS: Fluoroscopic guidance was provided during left ureter cystogram with dilatation along with laser and stone removal procedure performed by Dr. Joseph. A total of 13 seconds of fluoroscopic ti me was utilized during the procedure and four spot intraoperative images are acquired. Images show le ft UVJ access with opacification of the ureter along with enhancement of guidewire and subsequent ure ter stent. IMPRESSION: As Above.
[2020-04-12 10:34] VITALS: BP 125/84; PULSE 78
== END | disposition home or self-care (01) ==
LOC: OR 06:02
PROVIDERS: ATTEND Urology
DX: N13.2 Hydronephrosis with renal and ureteral calculous obstruction (principal); I10 Essential (primary) hypertension; E78.5 Hyperlipidemia, unspecified; G47.33 Obstructive sleep apnea (adult) (pediatric); K21.9 Gastro-esophageal reflux disease without esophagitis; Z79.899 Other long term (current) drug therapy; Z90.49 Acquired absence of other specified parts of digestive tract; Z87.19 Personal history of other diseases of the digestive system; Z99.89 Dependence on other enabling machines and devices; Z98.890 Other specified postprocedural states; F41.9 Anxiety disorder, unspecified; Z80.8 Family history of malignant neoplasm of other organs or systems; Z80.3 Family history of malignant neoplasm of breast; Z79.1 Long term (current) use of non-steroidal anti-inflammatories (NSAID); Z79.3 Long term (current) use of hormonal contraceptives
CPT/HCPCS: 82365; 74420; 74018; 52356; C2625; C1758; C1769; J2250; J0330; J1100; J0690; J2405; J2001; J3010; J1885; J2704; Q9967

== ENCOUNTER → 2020-05-24 | Outpatient (CLI) | payer OTHER ==
--- NOTE | 2020-05-24 23:11 | US ---
EXAMINATION TYPE: US kidneys/renal and bladder DATE OF EXAM: 05/24/2020 COMPARISON: NONE CLINICAL HISTORY: N13.2 Hydronephrosis. Hx of kidney stones had stent removed from left kidney. EXAM MEASUREMENTS: Right Kidney: 12.2 x 5.8 x 5.5 cm Left Kidney: 10.5 x 5.9 x 5.1 cm Right Kidney: No hydronephrosis or masses seen Left Kidney: No hydronephrosis or masses seen Bladder: wnl Bilateral Jets seen: No IMPRESSION: Normal renal ultrasound
== END | disposition home or self-care (01) ==
LOC: RADUSWWP 15:41
PROVIDERS: ATTEND Urology
DX: N13.2 Hydronephrosis with renal and ureteral calculous obstruction (principal)
CPT/HCPCS: 76770